=== PATIENT | male | born 1980 | race Caucasian/White ===

== ENCOUNTER 2016-09-07 05:03 | Emergency (ER) | payer MEDICAID ==
[2016-09-07 05:04] VITALS: BMI 25.2
[2016-09-07 06:14] LABS: BASO # 0.1 K/uL (0.0-0.2); BASO % 0.8 % (0.0-2.0); EOS # 0.2 K/uL (0.0-0.7); EOS % 3.4 % (0.0-4.0); HEMATOCRIT 44.3 % (35.0-51.0); LYMPH # 3.2 K/uL (1.0-4.3); LYMPH % 49.3 % (20.0-40.0); MEAN CELL VOLUME 93.5 fL (80.0-94.0); MEAN CORPUSCULAR HEMOGLOBIN 30.7 pg (27.0-31.0); MEAN CORPUSCULAR HGB CONC 32.8 g/dL (33.0-37.0); MEAN PLATELET VOLUME 7.8 fL (7.2-11.7); MONO # 0.4 K/uL (0.0-0.8); MONO % 6.2 % (0.0-10.0); RED CELL DISTRIBUTION WIDTH 12.7 % (11.5-14.5); WHITE BLOOD COUNT 6.4 K/uL (4.8-10.8)
--- NOTE | 2016-09-07 06:29 | C.PDOC ---
History Of Present Illness Patient is a 36 year old male who presents to the ER with a complaint of feeling dizzy, lightheaded, and having shortness of breath. Patient states it occurred on his way to work. Patient reports his dizziness having turned into a headache and shortness of breath is gone but turned into chest pain. Patient states he has a history of asthma but ran out of his inhaler, states he would use it 2x a day. Patient reports this shortness of breath being different from the rest. Denies nausea or vomiting. Time Seen by Provider: 09/07/16 05:32 Chief Complaint (Nursing): Dizziness/Lightheaded History Per: Patient History/Exam Limitations: no limitations Onset/Duration Of Symptoms: Hrs Current Symptoms Are (Timing): Still Present Activity At Onset Of Symptoms: Walking Past Medical History Reviewed: Historical Data, Nursing Documentation, Vital Signs Vital Signs: Last Vital Signs Temp 97.8 F 09/07/16 05:16 Pulse 86 09/07/16 05:16 Resp 16 09/07/16 05:16 BP 122/79 09/07/16 05:16 Pulse Ox 97 09/07/16 07:05 - Medical History PMH: Asthma Surgical History: Cholecystectomy Family History: States: Unknown Family Hx - Social History Hx Tobacco Use: Yes Hx Alcohol Use: Yes (social) Hx Substance Use: No - Immunization History Hx Tetanus Toxoid Vaccination: No Hx Influenza Vaccination: No Hx Pneumococcal Vaccination: No Review Of Systems Except As Marked, All Systems Reviewed And Found Negative. Constitutional: Negative for: Fever, Chills Cardiovascular: Positive for: Chest Pain. Negative for: Palpitations Respiratory: Positive for: Shortness of Breath. Negative for: Cough Gastrointestinal: Negative for: Nausea, Vomiting, Diarrhea Neurological: Positive for: Headache, Dizziness Physical Exam - Physical Exam Appears: Well, Non-toxic Skin: Normal Color, Warm, Dry Head: Atraumatic, Normacephalic Eye(s): bilateral: Normal Inspection Oral Mucosa: Moist Chest: Symmetrical Cardiovascular: Rhythm Regular Respiratory: Normal Breath Sounds, No Rales, No Rhonchi, No Wheezing Gastrointestinal/Abdominal: Soft, No Tenderness Neurological/Psych: Oriented x3, Normal Speech, Normal Cognition ED Course And Treatment - Laboratory Results Result Diagrams: 09/07/16 06:09 09/07/16 06:09 ECG Rhythm: ST/T Changes ECG Interpretation: No Changes From Prior (03/11/15) Interpretation Of ECG: LVH Rate From EC O2 Sat by Pulse Oximetry: 97 Progress Note: EKG, blood work and chest x-ray order. Disposition - Disposition Disposition Time: 07:06 Condition: FAIR - Clinical Impression Clinical Impression: Dyspnea, Dizziness - Scribe Statement The provider has reviewed the documentation as recorded by the Scribe Ron Connell All medical record entries made by the Scribe were at my direction and personally dictated by me. I have reviewed the chart and agree that the record accurately reflects my personal performance of the history, physical exam, medical decision making, and the department course for this patient. I have also personally directed, reviewed, and agree with the discharge instructions and disposition. Physician Patient Turnover Patient Signed Over To: Tiana Berry Handoff Comments: CT head, labs, dispo
[2016-09-07 06:45] LABS: CHLORIDE 105 mmol/L (98-107)
[2016-09-07 06:46] LABS: POTASSIUM 3.8 mmol/L (3.6-5.2); SODIUM 143 mmol/L (132-148)
[2016-09-07 06:48] LABS: GFR AFRICAN-AMERICAN > 60
[2016-09-07 06:49] LABS: ALB/GLOB RATIO 1.3 (1.0-2.1); ALKALINE PHOSPHATASE 61 U/L (38-126); ALT/SGPT 78 U/L (21-72); AST/SGOT 52 U/L (17-59); BILIRUBIN,TOTAL 0.4 mg/dL (0.2-1.3); BLOOD UREA NITROGEN 15 mg/dL (9-20); CARBON DIOXIDE 24 mmol/L (22-30); GLUCOSE,RANDOM 96 mg/dL (75-110); TOTAL PROTEIN 7.7 g/dL (6.3-8.3)
[2016-09-07 06:50] LABS: CALCIUM 8.7 mg/dl (8.6-10.4)
--- NOTE | 2016-09-07 06:59 | CT ---
EXAM: CT Head Without Intravenous Contrast CLINICAL HISTORY: 36 years old, male; Pain and signs and symptoms; Dizziness; Headache; Headache not specified; Additional info: Dizzy, headache TECHNIQUE: Axial computed tomography images of the head/brain without intravenous contrast. This CT exam was performed using one or more of the following dose reduction techniques: automated exposure control, adjustment of the mA and/or kV according to patient size, and/or use of iterative reconstruction technique. COMPARISON: No relevant prior studies available. FINDINGS: Brain: No intracranial hemorrhage. No mass. No definite edema. Ventricles: No hydrocephalus. Bones/joints: No acute fracture. Soft tissues: Unremarkable. Sinuses: Scattered minimal to mild mucosal thickening. Mastoid air cells: No mastoid effusion. Orbits: Unremarkable as visualized. IMPRESSION: 1. No acute intracranial abnormality. 2. Incidental/non-acute findings are described above.
[2016-09-07 08:12] VITALS: BP 121/62; PULSE 85; RESP 18; TEMP 98.2; O2SAT 98
--- NOTE | 2016-09-07 08:32 | RAD ---
PROCEDURE: CHEST RADIOGRAPH, 1 VIEW HISTORY: SOB, dizzy COMPARISON: 07/13/2016 FINDINGS: LUNGS: Clear. PLEURA: No pneumothorax or pleural fluid seen. CARDIOVASCULAR: Normal. OSSEOUS STRUCTURES: No significant abnormalities. VISUALIZED UPPER ABDOMEN: Normal. OTHER FINDINGS: None. IMPRESSION: No active disease.
--- NOTE | 2016-09-09 19:10 | CARD ---
APPROVED REPORT EKG Measurement Heart [id number] <Conclusion> Normal sinus rhythm Moderate voltage criteria for LVH, may be normal variant Borderline ECG
== END 2016-09-07 08:28 | disposition home or self-care (01) ==
LOC: C.ER 05:03
DX: R42 Dizziness and giddiness (principal); R06.00 Dyspnea, unspecified

== ENCOUNTER 2017-04-06 10:01 | Emergency (ER) | payer MEDICAID ==
[2017-04-06 10:11] VITALS: BMI 25.0
[2017-04-06 10:12] VITALS: RESP 18; TEMP 98.3
[2017-04-06 10:14] VITALS: BP 116/76
--- NOTE | 2017-04-06 10:58 | C.PDOC ---
History Of Present Illness 36 y/o male states he left work today with c/o body aches, fever, chills, cough. Patient reports many sick contacts at home with similar symptoms. Notes history of asthma; (+) smoker but has not smoked in the last 3 days. Denies headache, vomiting, diarrhea, or other associated symptoms. Time Seen by Provider: 04/06/17 10:51 Chief Complaint (Nursing): Cough, Cold, Congestion History Per: Patient History/Exam Limitations: no limitations Current Symptoms Are (Timing): Still Present Location Of Pain: None Sick Contacts (Context): Family Member(s) Associated Symptoms: Fever, Chills, Cough, Myalgias. denies: Neck Pain, Vomiting, Diarrhea Ear Symptoms: Bilateral: None Recent travel outside of the [place]: No Past Medical History Reviewed: Historical Data, Nursing Documentation, Vital Signs Vital Signs: Last Vital Signs Temp 98.3 F 04/06/17 10:12 Pulse 78 04/06/17 11:44 Resp 18 04/06/17 11:44 BP 116/76 04/06/17 10:12 Pulse Ox 98 04/06/17 11:44 - Medical History PMH: Asthma Surgical History: Cholecystectomy Family History: States: Unknown Family Hx - Social History Hx Tobacco Use: Yes Hx Alcohol Use: Yes (social) Hx Substance Use: No - Immunization History Hx Tetanus Toxoid Vaccination: No Hx Influenza Vaccination: No Hx Pneumococcal Vaccination: No Review Of Systems Except As Marked, All Systems Reviewed And Found Negative. Constitutional: Positive for: Fever, Chills, Malaise ENT: Negative for: Throat Pain Respiratory: Positive for: Cough, Wheezing. Negative for: Shortness of Breath Gastrointestinal: Negative for: Nausea, Vomiting, Abdominal Pain Skin: Negative for: Rash Neurological: Negative for: Headache, Dizziness Physical Exam - Physical Exam Appears: Non-toxic, No Acute Distress Skin: Normal Color, Warm, Dry Head: Atraumatic, Normacephalic Oral Mucosa: Moist Throat: Normal, No Erythema, No Exudate Neck: Supple Chest: Symmetrical Cardiovascular: Rhythm Regular Respiratory: No Accessory Muscle Use, No Rales, Rhonchi (mild, scattered), Wheezing (mild, scattered) Gastrointestinal/Abdominal: Soft, No Tenderness Back: Normal Inspection Extremity: Normal ROM, Capillary Refill (< 2 sec.) Neurological/Psych: Oriented x3, Normal Speech, Normal Cognition ED Course And Treatment O2 Sat by Pulse Oximetry: 100 (RA) Pulse Ox Interpretation: Normal Progress Note: Declines breathing treatments in ER; prefers home meds, pt demonstrates good MDI technique. Advised f/u with clinic/PMD. Medical Decision Making Medical Decision Making: viral syndrome with asthma good MDI inhaler technique prefers home therapies and work note. Disposition Doctor Will See Patient In The: Office Counseled Patient/Family Regarding: Studies Performed, Diagnosis - Disposition Referrals: Shaik Bautista MD [Staff Provider] - Disposition: HOME/ ROUTINE Disposition Time: 10:57 Condition: GOOD Additional Instructions: continue dayquil/Nyquil Duoneb 2 Amps every 3-4 hours as needed Follow-up w PMD as needed. Prescriptions: Albuterol/Ipratropium [Duoneb 3 MG/3 Ml-0.5 MG/3 Ml 3 Ml] 6 ml IH Q4H PRN #100 neb PRN Reason: asthma Instructions: Asthma (ED), Viral Syndrome (ED) Forms: [facility] ([place]), Work Excuse - Clinical Impression Clinical Impression: Viral syndrome, Asthma - Scribe Statement The provider has reviewed the documentation as recorded by the Scribe SM All medical record entries made by the Scribe were at my direction and personally dictated by me. I have reviewed the chart and agree that the record accurately reflects my personal performance of the history, physical exam, medical decision making, and the department course for this patient. I have also personally directed, reviewed, and agree with the discharge instructions and disposition.
[2017-04-06 11:44] VITALS: PULSE 78
[2017-04-06 11:53] VITALS: O2SAT 100
--- NOTE | 2017-04-08 17:44 | CARD ---
APPROVED REPORT EKG Measurement Heart [id number] <Conclusion> Normal sinus rhythm Normal ECG
== END 2017-04-06 11:45 | disposition home or self-care (01) ==
LOC: C.ER 10:01
DX: B34.9 Viral infection, unspecified (principal); J45.909 Unspecified asthma, uncomplicated; Z87.891 Personal history of nicotine dependence

== ENCOUNTER 2017-06-29 20:34 | Emergency (ER) | payer MEDICAID ==
[2017-06-29 20:34] VITALS: BMI 25.0
[2017-06-29 20:50] VITALS: BP 126/80; PULSE 70; TEMP 98.7; O2SAT 96
[2017-06-29] MEDS ORDERED: MethylPREDNISolone 40 mg Vial IVP STA (21:14)
[2017-06-29] MEDS ORDERED: MethylPREDNISolone 40 mg Vial IM STA (21:27)
[2017-06-29] MEDS ORDERED: MethylPREDNISolone 40 mg Vial ONE (21:31)
--- NOTE | 2017-06-29 21:41 | C.PDOC ---
History Of Present Illness 37-year-old male, presents to the emergency department with complaints of an itchy rash to face, neck and back that started after he got a haircut yesterday. States symptoms have been gradually worsening. No contacts with similar. Denies throat swelling, shortness of breath, fever, rash. Time Seen by Provider: 06/29/17 21:02 Chief Complaint (Nursing): Allergic Reaction History Per: Patient History/Exam Limitations: no limitations Onset/Duration Of Symptoms: Hrs Current Symptoms Are (Timing): Still Present Severity: Mild Recent travel outside of the [place]: No Past Medical History Reviewed: Historical Data, Nursing Documentation, Vital Signs Vital Signs: Last Vital Signs Temp 98.7 F 06/29/17 20:42 Pulse 70 06/29/17 20:42 Resp 18 06/29/17 20:42 BP 126/80 06/29/17 20:42 Pulse Ox 96 06/29/17 21:42 - Medical History PMH: Asthma Denies: Depression Surgical History: Cholecystectomy - [facility] Procedures APPLICATION OF SPLINT (11/17/04) INJECT/INFUSE NEC (02/14/12) NEBULIZER THERAPY (02/14/12) Family History: States: No Known Family Hx - Social History Hx Tobacco Use: Yes Hx Alcohol Use: Yes (social) Hx Substance Use: No - Immunization History Hx Tetanus Toxoid Vaccination: No Hx Influenza Vaccination: No Hx Pneumococcal Vaccination: No Review Of Systems Except As Marked, All Systems Reviewed And Found Negative. Constitutional: Negative for: Fever Gastrointestinal: Negative for: Vomiting Skin: Positive for: Rash Physical Exam - Physical Exam Appears: Non-toxic, No Acute Distress Skin: Warm, Dry, Rash (diffuse, urticarial. Sparing palms and soles) Head: Atraumatic, Normacephalic Eye(s): bilateral: Normal Inspection, PERRL, EOMI Ear(s): Bilateral: Normal Nose: Normal Oral Mucosa: Moist Tongue: Normal Appearing, No Swelling Lips: Normal Appearing, No Swelling Throat: No Erythema, No Exudate, Other (No airway compromise) Neck: Normal ROM Chest: Symmetrical, No Tenderness Cardiovascular: Rhythm Regular, No Friction Rub, No Murmur Respiratory: Normal Breath Sounds, No Accessory Muscle Use Gastrointestinal/Abdominal: Soft, No Tenderness Extremity: Normal ROM, No Deformity, No Swelling Neurological/Psych: Oriented x3, Normal Speech, Normal Motor Gait: Steady ED Course And Treatment O2 Sat by Pulse Oximetry: 96 Disposition - Disposition Referrals: Shaik Bautista MD [Staff Provider] - Disposition: HOME/ ROUTINE Disposition Time: 22:02 Condition: GOOD Additional Instructions: Follow up with the medical doctor within 1-2 days. Return if worsened. Prescriptions: DiphenhydrAMINE [Benadryl] 25 mg PO QID #28 cap Famotidine [Pepcid] 20 mg PO BID #20 tab predniSONE [Prednisone] 20 mg PO BID #10 tab Instructions: Urticaria (ED) Forms: [facility] ([place]) - Clinical Impression Clinical Impression: Allergic urticaria - Scribe Statement The provider has reviewed the documentation as recorded by the Scribe (Jaycob Marin) All medical record entries made by the Scribe were at my direction and personally dictated by me. I have reviewed the chart and agree that the record accurately reflects my personal performance of the history, physical exam, medical decision making, and the department course for this patient. I have also personally directed, reviewed, and agree with the discharge instructions and disposition.
[2017-06-29 22:21] VITALS: RESP 20
== END 2017-06-29 22:21 | disposition home or self-care (01) ==
LOC: C.ER 20:34
DX: L50.0 Allergic urticaria (principal)
CPT/HCPCS: 96372; 99283; J2920

== ENCOUNTER 2017-11-14 03:33 | Emergency (ER) | payer MEDICAID ==
[2017-11-14 03:33] VITALS: BMI 25.0
[2017-11-14 03:46] VITALS: BP 104/65; PULSE 88; RESP 18; TEMP 98; O2SAT 96
--- NOTE | 2017-11-14 04:07 | C.PDOC ---
History Of Present Illness 37 year old male presents to the ER with a complaint of right knee pain. Patient states he was playing wiffleball earlier today when someone else's knee hit the side of his right knee. Patient has tried icing the knee at home with minimal relief. Denies weakness, numbness, or Hx of injury to the right knee. Time Seen by Provider: 11/14/17 03:54 Chief Complaint (Nursing): Lower Extremity Problem/Injury History Per: Patient History/Exam Limitations: no limitations Onset/Duration Of Symptoms: Hrs Current Symptoms Are (Timing): Still Present Recent travel outside of the [place]: No - Knee Description Of Injury: Other (Struck by other person's knee) Past Medical History Reviewed: Historical Data, Nursing Documentation, Vital Signs Vital Signs: Last Vital Signs Temp 98 F 11/14/17 03:41 Pulse 88 11/14/17 03:41 Resp 18 11/14/17 03:41 BP 104/65 11/14/17 03:41 Pulse Ox 96 11/14/17 04:17 - Medical History PMH: Asthma Surgical History: Cholecystectomy - [facility] Procedures APPLICATION OF SPLINT (11/17/04) INJECT/INFUSE NEC (02/14/12) NEBULIZER THERAPY (02/14/12) Family History: States: Unknown Family Hx - Social History Hx Tobacco Use: Yes Hx Alcohol Use: Yes (social) Hx Substance Use: No - Immunization History Hx Tetanus Toxoid Vaccination: No Hx Influenza Vaccination: No Hx Pneumococcal Vaccination: No Review Of Systems Musculoskeletal: Positive for: Other (Right knee pain) Neurological: Negative for: Weakness, Numbness Physical Exam - Physical Exam Appears: Non-toxic Skin: Normal Color, Warm, Dry, No Rash Head: Atraumatic, Normacephalic Eye(s): bilateral: Normal Inspection, PERRL, EOMI Oral Mucosa: Moist Extremity: Normal ROM (x4), No Tenderness, Capillary Refill (<2 seconds), No Deformity, No Swelling, Other (Right knee has FROM, NO swelling) Extremity: Bilateral: Normal Color And Temperature Pulses: Left Dorsalis Pedis: Normal, Right Dorsalis Pedis: Normal Neurological/Psych: Oriented x3, Normal Speech, Normal Motor, Normal Sensation Gait: Steady ED Course And Treatment O2 Sat by Pulse Oximetry: 96 (Room air) Pulse Ox Interpretation: Normal - Other Rad Right knee x-ray X-Ray: Interpreted by Me, Viewed By Me Interpretation: No acute fractures or dislocations. Medical Decision Making Medical Decision Making: Right knee x-ray ordered, results were negative. Motrin administered for pain with relief. Patient is ambulatory in the ER without any pain or discomfort, will discharge home with instructions to follow up with PMD. Knee brace applied. Disposition - Disposition Referrals: [facility] [Outside] Disposition: HOME/ ROUTINE Disposition Time: 04:43 Condition: GOOD Additional Instructions: Follow up with the Ortho clinic within 2-3 days within 1-2 days. Return if worsened. Prescriptions: Ibuprofen [Motrin] 600 mg PO TID #21 tab Instructions: Knee Sprain (DC) Forms: [facility] ([place]), Work Excuse - Clinical Impression Clinical Impression: Knee sprain - Scribe Statement The provider has reviewed the documentation as recorded by the Scribe Ron Connell All medical record entries made by the Scribe were at my direction and personally dictated by me. I have reviewed the chart and agree that the record accurately reflects my personal performance of the history, physical exam, medical decision making, and the department course for this patient. I have also personally directed, reviewed, and agree with the discharge instructions and disposition.
--- NOTE | 2017-11-14 08:10 | RAD ---
PROCEDURE: Right Knee Radiographs. HISTORY: knee pain COMPARISON: None. FINDINGS: BONES: Normal. No fracture. JOINTS: Normal. No osteoarthritis. JOINT EFFUSION: None. OTHER FINDINGS: None. IMPRESSION: No evidence of acute fracture or dislocation.
== END 2017-11-14 04:58 | disposition home or self-care (01) ==
LOC: C.ER 03:33
DX: S83.91XA Sprain of unspecified site of right knee, initial encounter (principal); W51.XXXA Accidental striking against or bumped into by another person, initial encounter; Y93.79 Activity, other specified sports and athletics; Y92.39 Other specified sports and athletic area as the place of occurrence of the external cause

== ENCOUNTER 2017-12-01 10:19 | Emergency (ER) | payer MEDICAID ==
[2017-12-01 10:19] VITALS: BMI 25.0
[2017-12-01] MEDS ORDERED: Albuterol-Ipratrop 3 mg / 0.5 (3 ml) UD ONE (10:33)
[2017-12-01 10:35] VITALS: RESP 18
[2017-12-01] MEDS ORDERED: Albuterol-Ipratrop 3 mg / 0.5 (3 ml) UD INH STA (10:40)
[2017-12-01] MEDS ORDERED: Sodium Chloride 0.9% 1,000 ML IV ONE (11:00)
[2017-12-01] MEDS ORDERED: Albuterol 0.083% Inhal Sol (2.5 mg/3 mL) UD INH STA (11:02)
[2017-12-01] MEDS ORDERED: Albuterol 0.083% Inhal Sol (2.5 mg/3 mL) UD ONE (11:13)
[2017-12-01] MEDS ORDERED: Sodium Chloride 0.9% 1,000 ML ONE (11:13)
[2017-12-01 11:15] LABS: BASO # 0.1 K/uL (0.0-0.2); BASO % 0.7 % (0.0-2.0); EOS # 0.2 K/uL (0.0-0.7); EOS % 2.6 % (0.0-4.0); HEMOGLOBIN 15.7 g/dL (12.0-18.0); LYMPH # 2.5 K/uL (1.0-4.3); LYMPH % 31.9 % (20.0-40.0); MEAN CELL VOLUME 94.4 fL (80.0-94.0); MEAN CORPUSCULAR HEMOGLOBIN 32.2 pg (27.0-31.0); MEAN CORPUSCULAR HGB CONC 34.2 g/dL (33.0-37.0); MONO # 0.5 K/uL (0.0-0.8); MONO % 6.2 % (0.0-10.0); NEUT # 4.5 K/uL (1.8-7.0); NEUT % 58.6 % (50.0-75.0); NRBC % 0.1 % (0.0-2.0); RBC 4.88 Mil/uL (4.40-5.90); RED CELL DISTRIBUTION WIDTH 12.5 % (11.5-14.5); WHITE BLOOD COUNT 7.8 K/uL (4.8-10.8)
--- NOTE | 2017-12-01 11:24 | RAD ---
HISTORY: abd pain COMPARISON: 09/07/2016 TECHNIQUE: Chest PA and lateral FINDINGS: LUNGS: No active pulmonary disease. PLEURA: No significant pleural effusion identified. No pneumothorax apparent. CARDIOVASCULAR: Normal. OSSEOUS STRUCTURES: No significant abnormalities. VISUALIZED UPPER ABDOMEN: Normal. OTHER FINDINGS: None. IMPRESSION: No active disease.
[2017-12-01 11:27] LABS: ALB/GLOB RATIO 1.6 (1.0-2.1); ALBUMIN 4.9 g/dL (3.5-5.0); ALT/SGPT 160 U/L (21-72); AST/SGOT 162 U/L (17-59); BLOOD UREA NITROGEN 14 mg/dL (9-20); CALCIUM 9.2 mg/dl (8.6-10.4); GFR AFRICAN-AMERICAN > 60; GFR NON-AFRICAN AMERICAN > 60; LIPASE 120 U/L (23-300)
[2017-12-01 11:39] LABS: B-TYPE NATRIURETIC PEPTIDE < 11.1 pg/mL (0-450)
[2017-12-01 11:42] LABS: SQUAMOUS EPITHIAL < 1 /hpf (0-5); URINE BILIRUBIN NEGATIVE (NEGATIVE); URINE BLOOD NEGATIVE (NEGATIVE); URINE CLARITY Clear (Clear); URINE COLOR Yellow (YELLOW); URINE GLUCOSE (UA) NORMAL (Normal); URINE LEUKOCYTE ESTERASE NEG Leu/uL (Negative); URINE PROTEIN NEGATIVE (NEGATIVE); URINE UROBILINOGEN NORMAL mg/dL (0.2-1.0)
[2017-12-01] MEDS ORDERED: Iodixanol 320 MG/ML 100 ML BOTTLE IV ONE (12:26)
--- NOTE | 2017-12-01 13:05 | CT ---
PROCEDURE: CT Abdomen and Pelvis with contrast HISTORY: Abdominal pain COMPARISON: None. TECHNIQUE: CT scan of the abdomen and pelvis was performed after administration of intravenous contrast. Oral contrast was not administered. Coronal and sagittal reformatted images were obtained. Contrast dose: 100 mL Visipaque Radiation dose: Total exam DLP = 302.23 mGy-cm. This CT exam was performed using one or more of the following dose reduction techniques: Automated exposure control, adjustment of the mA and/or kV according to patient size, and/or use of iterative reconstruction technique. FINDINGS: LOWER THORAX: The visualized lungs are clear. LIVER: There is mild hepatomegaly and diffuse fatty infiltration in the liver. No gross lesion or ductal dilatation. GALLBLADDER AND BILE DUCTS: Surgically absent. PANCREAS: Normal in size with homogeneous enhancement. No gross lesion or ductal dilatation. SPLEEN: Normal in size and appearance. ADRENALS: No discrete nodule. KIDNEYS AND URETERS: Normal in size with homogeneous enhancement. No hydronephrosis. No solid mass. VASCULATURE: No aortic aneurysm. BOWEL: The small bowel loops are normal in caliber. The colon is decompressed with There is apparent mild diffuse fatty infiltration in the colonic wall. No bowel dilatation or obstruction. APPENDIX: Normal appendix. PERITONEUM: No free fluid. No free air. LYMPH NODES: No enlarged lymph nodes. BLADDER: Unremarkable. REPRODUCTIVE: The prostate gland is normal in size. BONES: No acute fracture. Within normal limits for the patient's age. OTHER FINDINGS: None. IMPRESSION: No acute abdominal or pelvic abnormality. Mild hepatomegaly and fatty liver. Diffuse fatty infiltration in the colonic wall may represent chronic nonspecific colitis.
--- NOTE | 2017-12-01 13:13 | C.PDOC ---
History Of Present Illness 37-year-old male, PMHx includes asthma, presents to the emergency department with complaints of lower abdominal pain, ongoing for the past two days. Patient notes associated nausea, with non-bloody/non-bilious vomiting. Additionally, he is complaining of cough and wheezing. Patient denies diarrhea, fever, chills, chest pain, or any other associated symptoms. No other complaints at this time. Time Seen by Provider: 12/01/17 10:41 Chief Complaint (Nursing): Respiratory Distress History Per: Patient History/Exam Limitations: no limitations Current Symptoms Are (Timing): Still Present Past Medical History Reviewed: Historical Data, Nursing Documentation, Vital Signs Vital Signs: Last Vital Signs Temp 98 F 12/01/17 10:33 Pulse 96 H 12/01/17 10:33 Resp 18 12/01/17 10:51 BP 126/73 12/01/17 10:33 Pulse Ox 98 12/01/17 13:14 - Medical History PMH: Asthma Surgical History: Cholecystectomy - [facility] Procedures APPLICATION OF SPLINT (11/17/04) INJECT/INFUSE NEC (02/14/12) NEBULIZER THERAPY (02/14/12) Family History: States: No Known Family Hx - Social History Hx Tobacco Use: Yes Hx Alcohol Use: Yes (social) Hx Substance Use: No - Immunization History Hx Tetanus Toxoid Vaccination: No Hx Influenza Vaccination: No Hx Pneumococcal Vaccination: No Review Of Systems Constitutional: Negative for: Fever, Chills Cardiovascular: Negative for: Chest Pain, Palpitations Respiratory: Positive for: Cough, Wheezing. Negative for: Shortness of Breath Gastrointestinal: Positive for: Nausea, Vomiting, Abdominal Pain. Negative for : Diarrhea Genitourinary: Negative for: Dysuria, Hematuria Musculoskeletal: Negative for: Back Pain Skin: Negative for: Rash Neurological: Negative for: Weakness, Numbness Physical Exam - Physical Exam Appears: Non-toxic, No Acute Distress Skin: Normal Color, Warm, Dry, No Rash Head: Atraumatic, Normacephalic Eye(s): bilateral: Normal Inspection Nose: Normal Oral Mucosa: Moist Lips: Normal Appearing Neck: Normal ROM Chest: Symmetrical Cardiovascular: Rhythm Regular, No Murmur Respiratory: No Accessory Muscle Use, Wheezing (B/L expiratory, faint.) Gastrointestinal/Abdominal: Bowel Sounds, Soft, Tenderness (B/L lower quadrants) Extremity: Normal ROM, No Deformity, No Swelling Neurological/Psych: Oriented x3, Normal Speech ED Course And Treatment - Laboratory Results Result Diagrams: 12/01/17 11:11 12/01/17 11:11 O2 Sat by Pulse Oximetry: 98 Medical Decision Making Medical Decision Making: Plan: * CT Abd/Pel * Bloodwork * Chest X-Ray * Duoneb, Pepcid, IVF, Toradol, Zofran * UA * Reassess and Disposition patient states improvement. Eating bag of chips. NO further complaints. abd. soft, nt, nd (+)bs, lungs now clear. patient discharged to follow up with pmd in 2 days. Advised to call and make an appointment. Disposition Counseled Patient/Family Regarding: Studies Performed, Diagnosis, Need For Followup, Rx Given - Disposition Referrals: Lucretia Bautista MD [Non-Staff] - Disposition: HOME/ ROUTINE Disposition Time: 13:11 Condition: IMPROVED Additional Instructions: follow up with your doctor within 2 days call to make an appointment take medications as needed continue your home inhaler return to ER if symptoms worsens or progress Prescriptions: Famotidine [Pepcid] 20 mg PO BID #20 tab Ondansetron ODT [Zofran ODT] 4 mg PO TID PRN #12 odt PRN Reason: Nausea/Vomiting Instructions: Asthma in Adults, Acute Abdomen (Belly Pain), Adult (DC) Forms: General Discharge Instructions, [facility] ([place]ian), Work Excuse - Clinical Impression Clinical Impression: Bronchospasm, Abdominal pain - Scribe Statement The provider has reviewed the documentation as recorded by the Scribe (Jaycob Marin) All medical record entries made by the Scribe were at my direction and personally dictated by me. I have reviewed the chart and agree that the record accurately reflects my personal performance of the history, physical exam, medical decision making, and the department course for this patient. I have also personally directed, reviewed, and agree with the discharge instructions and disposition.
[2017-12-01 13:40] VITALS: BP 124/83; PULSE 89; TEMP 98.2; O2SAT 100
== END 2017-12-01 13:43 | disposition home or self-care (01) ==
LOC: C.ER 10:19
DX: J98.01 Acute bronchospasm (principal); R10.9 Unspecified abdominal pain; F17.210 Nicotine dependence, cigarettes, uncomplicated
CPT/HCPCS: 71046; 74177; 80053; 81001; 83690; 83880; 85025; 94640; 96361; 96374; 96375; 99285; J1885; J2405; J7030; Q9967

== ENCOUNTER 2018-02-01 06:33 | Emergency (ER) | payer MEDICAID ==
[2018-02-01 06:33] VITALS: BMI 25.0
[2018-02-01] MEDS ORDERED: Albuterol-Ipratrop 3 mg / 0.5 (3 ml) UD ONE ×2 (06:45→07:32)
[2018-02-01] MEDS ORDERED: Albuterol-Ipratrop 3 mg / 0.5 (3 ml) UD INH ONE (06:50)
[2018-02-01 07:12] VITALS: O2SAT 99
[2018-02-01] MEDS ORDERED: Albuterol-Ipratrop 3 mg / 0.5 (3 ml) UD INH STA (07:18)
--- NOTE | 2018-02-01 07:25 | C.PDOC ---
History Of Present Illness 37 year old male with a history of asthma presents to the emergency department with complaints of shortness of breath for one day. Patient states that he recently ran out of his inhalers and states that he woke up feeling short of breath this morning. He denies cough, chest pain, or a history of intubation but admits to tobacco use. Time Seen by Provider: 02/01/18 07:11 Chief Complaint (Nursing): Shortness Of Breath History Per: Patient History/Exam Limitations: no limitations Onset/Duration Of Symptoms: Days (1) Current Symptoms Are (Timing): Still Present Associated Symptoms: Other (shortness of breath). denies: Chest Pain, Bloody Cough, Productive Cough Past Medical History Reviewed: Historical Data, Nursing Documentation, Vital Signs Vital Signs: Last Vital Signs Temp 98.6 F 02/01/18 06:45 Pulse 73 02/01/18 07:11 Resp 12 02/01/18 07:11 BP 130/86 02/01/18 07:11 Pulse Ox 99 02/01/18 07:28 - Medical History PMH: Asthma Denies: Depression Surgical History: Cholecystectomy - [facility] Procedures APPLICATION OF SPLINT (11/17/04) INJECT/INFUSE NEC (02/14/12) NEBULIZER THERAPY (02/14/12) Family History: States: No Known Family Hx - Social History Hx Tobacco Use: Yes Hx Alcohol Use: Yes (social) Hx Substance Use: No - Immunization History Hx Tetanus Toxoid Vaccination: No Hx Influenza Vaccination: No Hx Pneumococcal Vaccination: No Review Of Systems Except As Marked, All Systems Reviewed And Found Negative. Respiratory: Positive for: Shortness of Breath Physical Exam - Physical Exam Appears: Non-toxic, No Acute Distress Skin: Warm, Dry Head: Atraumatic, Normacephalic Eye(s): bilateral: Normal Inspection Nose: Normal Oral Mucosa: Moist Throat: Normal, No Exudate Neck: Normal, Supple Chest: Symmetrical Cardiovascular: Rhythm Regular, No Murmur Respiratory: No Rales, No Rhonchi, Wheezing (expiratory wheeze) Gastrointestinal/Abdominal: Normal Exam, Soft, No Tenderness, No Guarding, No Rebound Extremity: Normal ROM, No Swelling Neurological/Psych: Oriented x3, Normal Speech, Normal Cognition ED Course And Treatment O2 Sat by Pulse Oximetry: 99 (RA) Pulse Ox Interpretation: Normal Medical Decision Making Medical Decision Making: Assessment: Asthma exacerbation. Plan: Duoneb 3ml INH Prednisone 60mg PO Nebulizer Treatment 0753 - patient states improvement. Will discharge home to follow up with pmd within 2 days Disposition Counseled Patient/Family Regarding: Studies Performed, Diagnosis, Need For Followup, Rx Given - Disposition Referrals: Shaik Bautista MD [Staff Provider] - Disposition: HOME/ ROUTINE Disposition Time: 07:54 Condition: IMPROVED Additional Instructions: follow up with your doctor within 2 days take medications as prescribed call to make an appointment return to ER if symptoms worsens or progress Prescriptions: Albuterol Sulfate [Proventil Hfa] 2 puff IH QID #1 [id number].aer.[id number] predniSONE [predniSONE Tab] 50 mg PO DAILY #4 tab Instructions: Asthma in Adults Forms: [facility] (Arabic), General Discharge Instructions, Work Excuse - Clinical Impression Clinical Impression: Asthma - Scribe Statement The provider has reviewed the documentation as recorded by the Scribe (Constantine Andrade) Provider Attestation: All medical record entries made by the Scribe were at my direction and personally dictated by me. I have reviewed the chart and agree that the record accurately reflects my personal performance of the history, physical exam, medical decision making, and the department course for this patient. I have also personally directed, reviewed, and agree with the discharge instructions and disposition.
[2018-02-01 08:10] VITALS: BP 142/82; PULSE 102; RESP 20; TEMP 98.4
== END 2018-02-01 08:15 | disposition home or self-care (01) ==
LOC: C.ER 06:33
DX: J45.909 Unspecified asthma, uncomplicated (principal)